=== PATIENT | female | born 1940 ===

== ENCOUNTER 2019-09-25 12:00 | Day surgery (SDC) | payer MEDICARE, OTHER ==
[~2019-09-25 12:00] MED LIST: Acetaminophen TAB* 325 MG ONE; Acetaminophen TAB* 325 MG PO ONE; Buffered Lidocaine 1% SYRIN* 1 ML/SYRINGE INTRADERM ONE; Famotidine IV* 10 MG/ML 2 ML (20 mg) IV ONE; Famotidine IV* 10 MG/ML 2 ML (20 mg) ONE; Lactated Ringers 1000 ML Bag* 1,000 ML IV SCH
[2019-09-25] MEDS ORDERED: fentaNYL* 50 MCG/ML 2 ML VIAL (100 MCG VIAL) ONE (12:45)
[2019-09-25] MEDS ORDERED: Midazolam* 1 MG/ML 2 ML VIAL (2 MG) ONE (12:45)
[2019-09-25] MEDS ORDERED: Buffered Lidocaine 1% SYRIN* 1 ML/SYRINGE INTRADERM ONE (13:05)
[2019-09-25] MEDS ORDERED: Bupivacaine 0.25% SDV* 30 ML ONE (13:34)
[2019-09-25] MEDS ORDERED: Ondansetron INJ* 2 MG/ML VIAL ONE (14:07)
[2019-09-25] MEDS ORDERED: Ketorolac INJ* 30 MG/ML 1 ML VIAL ONE (14:07)
[2019-09-25] MEDS ORDERED: Propofol* 10 MG/ML 20 ML BTL ONE (14:07)
[2019-09-25] MEDS ORDERED: Lidocaine 2% PF * 5 ML VIAL ONE (14:07)
[2019-09-25] MEDS ORDERED: Dexamethasone IV* 4 MG/ML 1 ML (4 MG) ONE (14:07)
[2019-09-25] MEDS ORDERED: HYDROcodone/ACETAMIN 5-325 MG* 1 TAB PO PRN (14:09)
[2019-09-25] MEDS ORDERED: Naloxone* 0.4 MG/ML 1 ML VIAL IV PRN (14:09)
[2019-09-25] MEDS ORDERED: fentaNYL* 50 MCG/ML 2 ML VIAL (100 MCG VIAL) IV PRN (14:09)
[2019-09-25] MEDS ORDERED: DiMENhydriNATE IV* 50 MG/ML VIAL IV PUSH PRN (14:09)
[2019-09-25] MEDS ORDERED: Levalbuterol 0.63MG/3ML NEB* UNIT OF USE INH PRN (14:09)
[2019-09-25] MEDS ORDERED: Ondansetron INJ* 2 MG/ML VIAL IV PRN (14:09)
[2019-09-25] MEDS ORDERED: diPHENhydraMINE IV* 50 MG/ML 1 ml VIAL (BENADRYL) IV PRN (14:09)
[2019-09-25] MEDS ORDERED: Labetalol IV* 5 MG/ML 20 ML VIAL ONE (14:29)
[2019-09-25 16:33] VITALS: BP 146/61
--- NOTE | 2019-09-26 03:32 | OP ---
DATE OF OPERATION: 09/25/19 - LOCATED WITHIN [facility] DATE OF : 44 SURGEON: Bernabe Short MD PLANNING ADVISOR: BRIE Saavedra student. ANESTHESIOLOGIST: Dr. Mckeon. ANESTHESIA: General. 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 OPERATIVE PROCEDURE: Right wrist pisiform excision and excision of loose body. INDICATIONS: Ms. Sol had severe end-stage pisotriquetral DJD. We talked about treatment options. She did want to proceed with surgery. ESTIMATED BLOOD LOSS: 2 mL. COMPLICATIONS: None. FINDINGS: See above and below. DESCRIPTION OF PROCEDURE: Ms. Sol was seen in the preoperative holding area. The correct site, side, and procedure was identified. We came back to the operating room where the arm was prepped and draped in the usual fashion and a time- out was performed. The arm was exsanguinated with the Esmarch and the tourniquet was inflated. I made a trapezoidal-shaped incision centered over the pisiform bone and a radially based flap was raised and sewn back. The longitudinal split was made in the FCU tendon. The pisiform bone was then shelled out using the Victoria blade. I excised the pisiform in one piece. There was absolutely no cartilage on the undersurface. I then removed a couple of loose bodies, one was quite large almost three-quarters of a centimeter in length. At this point, everything was looking very good. The wound was irrigated out. The FCU tendon split was repaired with 3-0 PDS sutures. Skin was closed with 4-0 nylon suture. Wounds were dressed with Xeroform, 4x4s, sterile Webril, and an Epi bandage. She was taken to the recovery room in stable condition. [id number]/[facility] #: [id number] [facility] HOSPITALKang
== END 2019-09-25 16:24 | disposition home or self-care (01) ==
LOC: OREAST 12:00
PROVIDERS: ATTEND Orthopaedic Surgery Hand Surgery
DX: M19.031 Primary osteoarthritis, right wrist (principal); I10 Essential (primary) hypertension; E78.5 Hyperlipidemia, unspecified; M19.90 Unspecified osteoarthritis, unspecified site; E11.9 Type 2 diabetes mellitus without complications; Z79.84 Long term (current) use of oral hypoglycemic drugs; Z87.891 Personal history of nicotine dependence; Z85.3 Personal history of malignant neoplasm of breast; E03.9 Hypothyroidism, unspecified; J44.9 Chronic obstructive pulmonary disease, unspecified
CPT/HCPCS: 88304; 88311; A9270-GY; J1100; J1885; J2250; J2405; J2704; J3010; J3490